=== PATIENT | male | born 1985 | race Caucasian/White ===

== ENCOUNTER 2020-02-29 08:34 | Outpatient (CLI) | payer BC, SELFPAY ==
--- NOTE | ~2020-02-29 | MR_ITS ---
EXAMINATION: MR brain/brain stem wo con DATE: 02/29/2020 09:20 INDICATION: Headache. TECHNIQUE: Magnetic resonance imaging (MRI) of the brain and brainstem was performed without intraven ous contrast. Sequences included sagittal and axial T1-weighted FSE, axial diffusion-weighted FS EPI, axial T2*-weighted GRE, axial T2-weighted FLAIR Propeller, and axial T2-weighted Propeller. Apparent diffusion coefficient (ADC) maps were created. COMPARISON: Brain MRI 01/24/2015, head CT 01/21/2015 FINDINGS: There is symmetric increased T2-weighted signal intensity in the bilateral parietal lobe de ep white matter. There is a small old infarct in right occipital lobe. There is no intracranial hemor rhage, acute infarction, or abnormal intracranial mass lesion. The ventricles are normal in size. The re is mild mucosal thickening in the paranasal sinuses. The orbits are normal. The mastoid air cells are normal. IMPRESSION: 1. Stable mild nonspecific cerebral white matter disease. The differential diagnosis includes prematu re chronic small vessel ischemic disease (especially if the patient has cardiovascular risk factors), demyelinating disease such as multiple sclerosis, drug abuse, vasculitis, or reactive astrocytosis ( gliosis) secondary to nonspecific etiology. 2. 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 Reviewed, dictated and finalized at location A. IMPRESSION: 1. Stable mild nonspecific cerebral white matter disease. The differential diag nosis includes premature chronic small vessel ischemic disease (especially if t he patient has cardiovascular risk factors), demyelinating disease such as mult iple sclerosis, drug abuse, vasculitis, or reactive astrocytosis (gliosis) seco ndary to nonspecific etiology. 2. 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
== END 2020-02-29 08:35 | disposition home or self-care (01) ==
PROVIDERS: PCP Family Medicine; Visit Provider Family Medicine
DX: R51 Headache (principal); R93.0 Abnormal findings on diagnostic imaging of skull and head, not elsewhere classified
CPT/HCPCS: 70551

== ENCOUNTER 2020-11-20 07:59 | Outpatient (CLI) | payer BC, SELFPAY | END 2020-11-20 08:00 | disposition home or self-care (01) | LOC: ANHCOVIDVC 08:00 | PROVIDERS: PCP Family Medicine | DX: Z23 Encounter for immunization (principal) | CPT/HCPCS: 0001A; 91300 ==

== ENCOUNTER 2020-12-11 08:04 | Outpatient (CLI) | payer BC, SELFPAY | END 2020-12-11 08:05 | disposition home or self-care (01) | LOC: ANHCOVIDVC 08:04 | PROVIDERS: PCP Family Medicine | DX: Z23 Encounter for immunization (principal) | CPT/HCPCS: 0002A; 91300 ==

== ENCOUNTER → 2021-02-27 11:38 | Outpatient (CLI) | payer BC, SELFPAY ==
--- NOTE | ~2021-02-27 | US_ITS ---
EXAMINATION:US venous doppler LE BI INDICATION:Acute pulmonary embolism. TECHNIQUE: Multiple grayscale, color flow and Doppler images of the right and left lower extremity de ep venous systems were obtained and reviewed. COMPARISON:No prior studies for comparison. FINDINGS: The common femoral, superficial femoral and popliteal veins demonstrate normal respiratory variation, augmentation and compressibility. Color flow is also seen within the posterior tibial, pe roneal, greater saphenous and profunda veins. IMPRESSION: 1: No lower extremity deep venous thrombosis. Reviewed, dictated and finalized at location A.
== END ==
PROVIDERS: PCP Family Medicine; Visit Provider Family Medicine
DX: I82.409 Acute embolism and thrombosis of unspecified deep veins of unspecified lower extremity (principal)
CPT/HCPCS: 93970

== ENCOUNTER 2023-01-12 16:49 | Emergency (ER) | payer BC, SELFPAY ==
[2023-01-12 16:55] VITALS: BP 162/95; PULSE 101; RESP 18; TEMP 36.7; O2SAT 100
--- NOTE | 2023-01-12 16:59 | ED.WOUNDLAC ---
HPI - Wound/Laceration General Chief Complaint: Wound/Laceration Stated Complaint: Cut Finger Lt Hand Time Seen by Provider: 01/12/23 16:59 Source: patient Mode of arrival: ambulatory Limitations: no limitations History of Present Illness HPI narrative: 37-year-old male presents with laceration to left index finger. Patient states that he is doing some wiring to instill solar systems on his roof and cut his finger with a razor blade. Bleeding controlled on arrival. Patient states his tetanus is up-to-date. range of motion and Distal neurovascularly intact. Patient concerning may need sutures. all systems reviewed and negative except as noted above. Related Data Home Medications Medication Instructions Recorded Confirmed No Home Medications 05/09/22 01/12/23 Allergies Allergy/AdvReac Type Severity Reaction Status Date / Time No Known Allergies Allergy Verified 01/12/23 17:05 Review of Systems Review of Systems: CONSTITUTIONAL: Denies fever, chills, or sweats. EYES: Denies visual changes, redness, or discharge. ENT: Denies rhinorrhea, congestion, sore throat, or otalgia. CARDIOVASCULAR: Denies chest pain, palpitations, or edema. RESPIRATORY: Denies cough or dyspnea. GASTROINTESTINAL: Denies abdominal pain, nausea, vomiting, or diarrhea. GENITOURINARY: Denies dysuria or hematuria. SKIN: Denies rash or itching. Reports laceration to left index finger. MUSCULOSKELETAL: Denies back pain, joint pain, or myalgia. NEUROLOGIC: Denies headache, numbness, or weakness. PSYCHIATRIC: Denies anxiety or depression. All other systems reviewed are negative, except as documented in HPI. PMFSH Past Medical History Medical History Migraine PFO (patent foramen ovale) Stroke with migraine Family History Family History Other Family history of allergic disorder Social History Social History Smoking status: Never smoker Alcohol intake: current Drinks per week: 1 Substance use: never Living arrangements: with family Gender identity (if verbalized by the patient): Male Spiritual care concerns: No Agree to blood products: Yes Comments Reviewed Exam Narrative: GENERAL: This is a well-nourished, well-developed patient, in no apparent distress. HEAD: normocephalic, atraumatic. EYES: PERRL. Sclera clear/white. Vision is grossly intact. EARS: External ears normal NOSE: External nose normal NECK: Neck supple, non-tender without lymphadenopathy, masses or thyromegaly. CARDIOVASCULAR: Regular rate and rhythm without murmurs, gallops, or rubs. RESPIRATORY: Clear to auscultation. Breath sounds equal bilaterally. No wheezes, rales, or rhonchi. SKIN: warm, Dry, with no suspicious lesions or rash, good texture and turgor. less than 1 cm laceration to dorsal aspect left index finger over the PIP. Bleeding controlled. NEURO: awake, alert, and oriented to person, place and time. There were no obvious focal neurologic abnormalities. EXTREMITIES: No joint tenderness, effusion, or edema noted. Course Course Level of Care: Express Care Visit Vital Signs Vital signs: Vital Signs Temperature 36.7 C 01/12/23 16:55 Pulse Rate 101 H 01/12/23 16:55 Respiratory Rate 18 01/12/23 16:55 Blood Pressure 162/95 H 01/12/23 16:55 Pulse Oximetry 100 01/12/23 16:55 Oxygen Delivery Room Air 01/12/23 16:55 Temperature 36.7 C 01/12/23 16:55 Pulse Rate 101 H 01/12/23 16:55 Respiratory Rate 18 01/12/23 16:55 Blood Pressure 162/95 H 01/12/23 16:55 Pulse Oximetry 100 01/12/23 16:55 Oxygen Delivery Room Air 01/12/23 16:55 Reviewed MDM - Wound/Laceration MDM Narrative Medical decision making narrative: Patient is aware of diagnosis, understands and agrees to treatment plan. Anticipatory guidance gi
== END 2023-01-12 17:30 | disposition home or self-care (01) ==
PROVIDERS: Emergency Provider Nurse Practitioner Family; PCP Family Medicine
DX: S61.211A Laceration without foreign body of left index finger without damage to nail, initial encounter (principal); W26.8XXA Contact with other sharp object(s), not elsewhere classified, initial encounter
CPT/HCPCS: 29130; 99212; G0463